=== PATIENT | male | born 1945 | race Caucasian/White ===

== ENCOUNTER 2022-09-27 11:19 | Emergency (ER) | payer MEDICARE, SELFPAY ==
[2022-09-27 11:45] VITALS: BP 118/60; PULSE 60; RESP 17; TEMP 37.1; O2SAT 96; BMI 23.6
--- NOTE | 2022-09-27 12:39 | XR_ITS ---
FINAL REPORT CLINICAL HISTORY: FALL last tuesday FINDINGS: LEFT RIBS 5 views of the left ribs show no fractures. There is no pneumothorax or pleural fluid collection. IMPRESSION: Negative left rib series. No pneumothorax. Reviewed, Interpreted and Dictated by Thanh Best III, MD Transcribed by Gracia Davis Authenticated and . [facility]
--- NOTE | 2022-09-27 12:39 | XR_ITS ---
FINAL REPORT CLINICAL HISTORY: FALL FINDINGS: Two views of the chest were obtained. The heart size and pulmonary vascularity are within normal limits. The mediastinum is normal. No acute pulmonary abnormality is identified. There is no pneumothorax. There are several chronic right posterior rib fractures. IMPRESSION: No active cardiopulmonary disease. Reviewed, Interpreted and Dictated by Thanh Best III, MD Transcribed by Gracia Davis Authenticated and [facility]
--- NOTE | 2022-09-27 12:40 | PC.NURSE ---
1240 PT TO XR
--- NOTE | 2022-09-27 12:55 | PC.NURSE ---
PT RETURNED FROM XR
--- NOTE | 2022-09-27 13:09 | PC.NURSE ---
DAIN TARANGO AT BEDSIDE.
--- NOTE | 2022-09-27 13:10 | PC.NURSE ---
ROUNDED ON PT, NO NEEDS AT THIS TIME
--- NOTE | 2022-09-27 13:28 | PC.NURSE ---
PT MEDICATED AT THIS TIME PER EMAR. NO NEEDS AT THIS TIME
--- NOTE | 2022-09-27 13:48 | PC.NURSE ---
RESPIRATORY AT BEDSIDE TO DEMONSTRATE INCENTIVE SPIROMETER
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
[2022-09-27 14:00] VITALS: BP 146/62; PULSE 56; RESP 18; TEMP 36.7; O2SAT 99
== END 2022-09-27 14:00 | disposition home or self-care (01) ==
LOC: ER 12:08 → UTC 12:08 → ER 12:14
PROVIDERS: Emergency Provider Student in an Organized Health Care Education/Training Program
DX: S20.219A Contusion of unspecified front wall of thorax, initial encounter (principal)
CPT/HCPCS: 71046; 71100; 99283